=== PATIENT | female | born 1970 | race Caucasian/White ===

== ENCOUNTER 2022-12-06 09:56 | Inpatient (IN) | payer OTHER ==
[2022-12-06 10:40] VITALS: BMI 18.0
[2022-12-06] MEDS ORDERED: NALOXONE HCL 0.4 MG/ML VIAL IM PRN (11:14)
[2022-12-06] MEDS ORDERED: POLYETHYLENE GLYCOL (HEALTHYLAX) 3350 17 GM PACKET PO PRN (11:14)
[2022-12-06] MEDS ORDERED: guaiFENesin 600 MG TABLET.ER (FP) PO PRN (11:14)
[2022-12-06] MEDS ORDERED: MAGNESIUM HYDROX 2400MG/30ML ORAL SUSPENSION 30 ML CUP PO PRN (11:14)
[2022-12-06] MEDS ORDERED: ACETAMINOPHEN 325 MG TABLET (FP) PO PRN (11:14)
[2022-12-06] MEDS ORDERED: DICYCLOMINE HCL 10 MG CAPSULE PO PRN (11:14)
[2022-12-06] MEDS ORDERED: MAG HYDROX/AL HYDROX/SIMETH 30 ML UNIT-DOSE CUP PO PRN (11:14)
[2022-12-06] MEDS ORDERED: IBUPROFEN 600 MG TABLET (FP) PO PRN (11:14)
[2022-12-06] MEDS ORDERED: BISMUTH SUBSALICYLATE 262 MG/15 ML BTL PO PRN (11:14)
[2022-12-06] MEDS ORDERED: IBUPROFEN 400 MG TABLET (FP) PO PRN (11:14)
[2022-12-06] MEDS ORDERED: LOPERAMIDE HCL 2 MG CAPSULE PO PRN (11:14)
[2022-12-06] MEDS ORDERED: NALOXONE HCL (KLOXXADO) 8 MG SPRAY NS PRN (11:14)
[2022-12-06] MEDS ORDERED: BENZOCAINE/MENTHOL (CHLORASEPTIC ) LOZENGE MM PRN (11:14)
[2022-12-06] MEDS ORDERED: BENZONATATE 200 MG CAPSULE PO PRN (11:14)
[2022-12-06] MEDS ORDERED: METHOCARBAMOL 500 MG TABLET ONE (12:20)
[2022-12-06] MEDS: MELATONIN 5 MG TABLETS PO SCH (22:34)
[2022-12-06] MEDS: THIAMINE HCL 100 MG TABLET (FP) PO SCH (22:34)
[2022-12-06] MEDS: METHOCARBAMOL 500 MG TABLET PO PRN (22:34)
[2022-12-07] MEDS: METHOCARBAMOL 500 MG TABLET PO PRN (07:29)
[2022-12-07] MEDS: hydrOXYzine PAMOATE 25 MG CAPSULE (FP) PO PRN ×2 (07:29→22:18)
[2022-12-07] MEDS ORDERED: methaDONE HCL 10 MG TABLET (FOR DETOX USE ONLY) PO ONE (10:15)
[2022-12-07] MEDS: PRENATAL VITAMINS W/ FOLIC ACID TABLET (FP) PO SCH (10:36)
[2022-12-07] MEDS: cloNIDine HCL 0.1 MG TABLET PO PRN (10:39)
[2022-12-07] MEDS: ONDANSETRON *ODT* 4 MG TABLET SL PRN (10:39)
[2022-12-07 10:43] LABS: HEMATOCRIT 38.7 % (32.4-45.2); MCH 31.1 pg (25.7-33.7); MCHC 33.6 g/dl (32.0-36.0); MEAN CELL VOLUME 92.4 fl (80-96); MEAN PLT VOLUME 8.7 fl (7.5-11.1); PLATELET COUNT 206 10^3/uL (134-434); RBC 4.19 M/mm3 (3.60-5.2); RDW 13.3 % (11.6-15.6); WHITE BLOOD COUNT 4.8 K/mm3 (4.0-10.0)
[2022-12-07 11:15] LABS: POTASSIUM 5.2 mmol/L (3.5-5.1)
[2022-12-07 11:19] LABS: CALCIUM 9.3 mg/dL (8.5-10.1)
[2022-12-07 11:21] LABS: ALBUMIN 3.8 g/dl (3.4-5.0); BLOOD UREA NITROGEN 22.3 mg/dL (7-18)
[2022-12-07 11:24] LABS: CREATININE 0.7 mg/dL (0.55-1.3)
[2022-12-07 11:26] LABS: BILIRUBIN,TOTAL 0.2 mg/dL (0.2-1); TOT PROT 7.3 g/dl (6.4-8.2)
[2022-12-07] MEDS ORDERED: PNEUMOC 20-VAL CONJ-DIP CRM/PF 0.5 ML SYRINGE IM ONE (12:39)
[2022-12-07] MEDS: COLLOIDAL OATMEAL 1 BAR EACH TP PRN (12:50)
[2022-12-07] MEDS: diazePAM 5 MG TABLET PO PRN ×2 (17:13→23:45)
[2022-12-07] MEDS: MELATONIN 5 MG TABLETS PO SCH (22:17)
[2022-12-07] MEDS: THIAMINE HCL 100 MG TABLET (FP) PO SCH (22:18)
[2022-12-08] MEDS: ONDANSETRON *ODT* 4 MG TABLET SL PRN (01:25)
[2022-12-08] MEDS: cloNIDine HCL 0.1 MG TABLET PO PRN ×2 (08:38→22:02)
[2022-12-08] MEDS: PRENATAL VITAMINS W/ FOLIC ACID TABLET (FP) PO SCH (10:12)
[2022-12-08] MEDS: diazePAM 5 MG TABLET PO PRN (17:10)
[2022-12-08] MEDS: MELATONIN 5 MG TABLETS PO SCH (22:01)
[2022-12-08] MEDS: hydrOXYzine PAMOATE 25 MG CAPSULE (FP) PO PRN (22:01)
[2022-12-08] MEDS: THIAMINE HCL 100 MG TABLET (FP) PO SCH (22:01)
[2022-12-08] MEDS: METHOCARBAMOL 500 MG TABLET PO PRN (22:01)
[2022-12-08] MEDS: BACITRACIN 0.9 GM PACKET TP SCH (22:02)
[2022-12-09] MEDS: diazePAM 5 MG TABLET PO PRN ×4 (05:36→22:04)
[2022-12-09] MEDS ORDERED: methaDONE HCL 10 MG TABLET (FOR DETOX USE ONLY) PO ONE (10:00)
[2022-12-09] MEDS: BACITRACIN 0.9 GM PACKET TP SCH ×2 (10:02→22:02)
[2022-12-09] MEDS: LIDOCAINE 5% TOPICAL PATCH TP SCH (10:03)
[2022-12-09] MEDS: METHOCARBAMOL 500 MG TABLET PO PRN ×2 (10:03→22:02)
[2022-12-09] MEDS: PRENATAL VITAMINS W/ FOLIC ACID TABLET (FP) PO SCH (10:05)
[2022-12-09] MEDS: cloNIDine HCL 0.1 MG TABLET PO PRN (17:56)
[2022-12-09] MEDS: ALBUTEROL SO4 HFA INHALER IH PRN ×2 (17:58→22:08)
[2022-12-09] MEDS: MELATONIN 5 MG TABLETS PO SCH (22:02)
[2022-12-09] MEDS: LIDOCAINE PATCH REMOVAL MC SCH (22:02)
[2022-12-09] MEDS: THIAMINE HCL 100 MG TABLET (FP) PO SCH (22:02)
[2022-12-09] MEDS: hydrOXYzine PAMOATE 25 MG CAPSULE (FP) PO PRN (22:04)
[2022-12-10] MEDS: hydrOXYzine PAMOATE 25 MG CAPSULE (FP) PO PRN ×2 (05:37→10:05)
[2022-12-10] MEDS: LIDOCAINE 5% TOPICAL PATCH TP SCH (10:05)
[2022-12-10] MEDS: BACITRACIN 0.9 GM PACKET TP SCH ×2 (10:05→22:08)
[2022-12-10] MEDS: PRENATAL VITAMINS W/ FOLIC ACID TABLET (FP) PO SCH (10:07)
[2022-12-10] MEDS: NICOTINE 7 MG/24 HOURS TOPICAL PATCH TD PRN (11:05)
[2022-12-10] MEDS: amLODIPine BESYLATE 2.5 MG TABLET (FP) PO SCH (11:05)
[2022-12-10] MEDS: METHOCARBAMOL 500 MG TABLET PO PRN (14:39)
[2022-12-10] MEDS: diazePAM 5 MG TABLET PO PRN ×2 (16:41→22:07)
[2022-12-10] MEDS: ALBUTEROL SO4 HFA INHALER IH PRN (17:26)
[2022-12-10] MEDS: MELATONIN 5 MG TABLETS PO SCH (22:07)
[2022-12-10] MEDS: THIAMINE HCL 100 MG TABLET (FP) PO SCH (22:07)
[2022-12-10] MEDS: LIDOCAINE PATCH REMOVAL MC SCH (22:08)
[2022-12-11] MEDS: hydrOXYzine PAMOATE 25 MG CAPSULE (FP) PO PRN ×2 (04:52→10:02)
[2022-12-11] MEDS: METHOCARBAMOL 500 MG TABLET PO PRN (04:52)
[2022-12-11 06:25] VITALS: RESP 18
[2022-12-11] MEDS: amLODIPine BESYLATE 2.5 MG TABLET (FP) PO SCH (09:32)
[2022-12-11] MEDS: BACITRACIN 0.9 GM PACKET TP SCH (09:32)
[2022-12-11] MEDS: PRENATAL VITAMINS W/ FOLIC ACID TABLET (FP) PO SCH (09:32)
[2022-12-11] MEDS: LIDOCAINE 5% TOPICAL PATCH TP SCH (09:33)
[2022-12-11 09:45] VITALS: BP 98/58; PULSE 71; TEMP 96.9
[2022-12-11] MEDS ORDERED: methaDONE HCL 10 MG TABLET (FOR DETOX USE ONLY) PO ONE (10:00)
[2022-12-11] MEDS: COLLOIDAL OATMEAL 1 BAR EACH TP PRN (10:02)
[2022-12-11] MEDS: NICOTINE 7 MG/24 HOURS TOPICAL PATCH TD PRN (10:03)
== END 2022-12-11 11:05 | disposition home or self-care (01) | DRG 773 ==
LOC: YASAS 09:56 → Y6N 12:13
PROVIDERS: ADMIT Allergy & Immunology; ATTEND Surgery
PROC: HZ2ZZZZ Detoxification Services for Substance Abuse Treatment (ICD-10-PCS; principal; 2022-12-06)
DX: F11.23 Opioid dependence with withdrawal (principal); F12.20 Cannabis dependence, uncomplicated; F17.213 Nicotine dependence, cigarettes, with withdrawal; F39 Unspecified mood [affective] disorder; E87.5 Hyperkalemia; I10 Essential (primary) hypertension; I83.92 Asymptomatic varicose veins of left lower extremity; J45.20 Mild intermittent asthma, uncomplicated; M54.50 Low back pain, unspecified; G89.29 Other chronic pain; Z99.89 Dependence on other enabling machines and devices; Z88.8 Allergy status to other drugs, medicaments and biological substances
CPT/HCPCS: 36415; 80053; 81025; 84132; 85027; 86780; 87635; 90677; Q0162

== ENCOUNTER 2023-02-14 16:51 | Inpatient (IN) | payer OTHER ==
[2023-02-14 17:53] VITALS: BMI 19.1
[2023-02-14] MEDS ORDERED: ALBUTEROL SO4 2.5/IPRATROPIUM 0.5 INH SOL 3 ML VIAL.NEB. NEB ONE ×2 (19:28→19:48)
[2023-02-14] MEDS ORDERED: methaDONE HCL 10 MG TABLET (FOR DETOX USE ONLY) PO ONE ×2 (19:29→22:00)
[2023-02-14] MEDS ORDERED: cloNIDine HCL 0.1 MG TABLET PO PRN (19:29)
[2023-02-14] MEDS ORDERED: NALOXONE HCL (KLOXXADO) 8 MG SPRAY NS PRN (19:35)
[2023-02-14] MEDS ORDERED: IBUPROFEN 400 MG TABLET (FP) PO PRN (19:35)
[2023-02-14] MEDS ORDERED: BISMUTH SUBSALICYLATE 524 MG/30 ML PO PRN (19:35)
[2023-02-14] MEDS ORDERED: DICYCLOMINE HCL 10 MG CAPSULE PO PRN (19:35)
[2023-02-14] MEDS ORDERED: MAGNESIUM HYDROX 2400MG/30ML ORAL SUSPENSION 30 ML CUP PO PRN (19:35)
[2023-02-14] MEDS ORDERED: ACETAMINOPHEN 325 MG TABLET (FP) PO PRN (19:35)
[2023-02-14] MEDS ORDERED: POLYETHYLENE GLYCOL (HEALTHYLAX) 3350 17 GM PACKET PO PRN (19:35)
[2023-02-14] MEDS ORDERED: guaiFENesin 600 MG TABLET.ER (FP) PO PRN (19:35)
[2023-02-14] MEDS ORDERED: LOPERAMIDE HCL 2 MG CAPSULE PO PRN (19:35)
[2023-02-14] MEDS ORDERED: IBUPROFEN 600 MG TABLET (FP) PO PRN (19:35)
[2023-02-14] MEDS ORDERED: ONDANSETRON *ODT* 4 MG TABLET SL PRN (19:35)
[2023-02-14] MEDS ORDERED: BENZOCAINE/MENTHOL (CHLORASEPTIC ) LOZENGE MM PRN (19:35)
[2023-02-14] MEDS ORDERED: MAG HYDROX/AL HYDROX/SIMETH 30 ML UNIT-DOSE CUP PO PRN (19:35)
[2023-02-14] MEDS ORDERED: NALOXONE HCL 0.4 MG/ML VIAL IM PRN (19:35)
[2023-02-14] MEDS ORDERED: BENZONATATE 200 MG CAPSULE PO PRN (19:35)
[2023-02-14] MEDS: diazePAM 5 MG TABLET PO PRN (22:34)
[2023-02-14] MEDS: MELATONIN 5 MG TABLETS PO SCH (22:34)
[2023-02-14] MEDS: THIAMINE HCL 100 MG TABLET (FP) PO SCH (22:34)
[2023-02-15] MEDS ORDERED: COLLOIDAL OATMEAL 1 BAR EACH TP PRN (00:05)
[2023-02-15] MEDS: diazePAM 5 MG TABLET PO PRN (05:26)
[2023-02-15] MEDS: ALBUTEROL SO4 HFA INHALER IH PRN ×3 (05:44→15:36)
[2023-02-15] MEDS: PRENATAL VITAMINS W/ FOLIC ACID TABLET (FP) PO SCH (09:24)
[2023-02-15] MEDS: METHOCARBAMOL 500 MG TABLET PO PRN ×2 (09:24→17:40)
[2023-02-15] MEDS ORDERED: methaDONE HCL 10 MG TABLET (FOR DETOX USE ONLY) PO ONE (10:00)
[2023-02-15 10:58] LABS: HEMATOCRIT 39.4 % (32.4-45.2); HEMOGLOBIN 12.8 GM/dL (10.7-15.3); MCHC 32.6 g/dl (32.0-36.0); MEAN CELL VOLUME 95.2 fl (80-96); MEAN PLT VOLUME 8.1 fl (7.5-11.1); PLATELET COUNT 286 10^3/uL (134-434); RBC 4.14 M/mm3 (3.60-5.2); RDW 13.6 % (11.6-15.6); WHITE BLOOD COUNT 8.6 K/mm3 (4.0-10.0)
[2023-02-15 11:05] LABS: POTASSIUM 4.4 mmol/L (3.5-5.1)
[2023-02-15 11:23] LABS: BLOOD UREA NITROGEN 17.5 mg/dL (7-18); CALCIUM 8.9 mg/dL (8.5-10.1)
[2023-02-15 11:24] LABS: ALBUMIN 3.4 g/dl (3.4-5.0)
[2023-02-15 11:26] LABS: CREATININE 0.8 mg/dL (0.55-1.3)
[2023-02-15 11:28] LABS: BILIRUBIN,TOTAL 0.2 mg/dL (0.2-1)
[2023-02-15] MEDS: ALBUTEROL SO4 2.5/IPRATROPIUM 0.5 INH SOL 3 ML VIAL.NEB. NEB PRN ×2 (11:34→17:41)
[2023-02-15] MEDS: HYDROCORTISONE 1% TOPICAL CREAM 30 GM TUBE TP SCH (11:59)
[2023-02-15] MEDS: diazePAM 5 MG TABLET PO SCH ×3 (11:59→22:03)
[2023-02-15] MEDS: MELATONIN 5 MG TABLETS PO SCH (22:03)
[2023-02-15] MEDS: SUVOREXANT 10 MG TABLET PO PRN (22:03)
[2023-02-15] MEDS: THIAMINE HCL 100 MG TABLET (FP) PO SCH (22:03)
[2023-02-16] MEDS: diazePAM 5 MG TABLET PO SCH ×4 (05:39→22:10)
[2023-02-16] MEDS: ALBUTEROL SO4 HFA INHALER IH PRN ×3 (05:40→22:09)
[2023-02-16] MEDS: ALBUTEROL SO4 2.5/IPRATROPIUM 0.5 INH SOL 3 ML VIAL.NEB. NEB PRN ×2 (06:04→23:02)
[2023-02-16] MEDS ORDERED: methaDONE HCL 10 MG TABLET (FOR DETOX USE ONLY) PO ONE (10:00)
[2023-02-16] MEDS: HYDROCORTISONE 1% TOPICAL CREAM 30 GM TUBE TP SCH (10:08)
[2023-02-16] MEDS: PRENATAL VITAMINS W/ FOLIC ACID TABLET (FP) PO SCH (10:08)
[2023-02-16] MEDS: NICOTINE POLACRILEX 2 MG GUM BUC PRN (10:09)
[2023-02-16] MEDS: METHOCARBAMOL 500 MG TABLET PO PRN (10:09)
[2023-02-16] MEDS ORDERED: LIDOCAINE 4% PATCH TP ONE (11:09)
[2023-02-16] MEDS: LIDOCAINE 5% TOPICAL PATCH TP SCH (11:53)
[2023-02-16] MEDS ORDERED: LIDOCAINE PATCH REMOVAL MC SCH (22:00)
[2023-02-16] MEDS: METHYL SALICYLATE/MENTHOL OINT 30 GM TUBE TP SCH (22:09)
[2023-02-16] MEDS: MELATONIN 5 MG TABLETS PO SCH (22:09)
[2023-02-16] MEDS: LIDOCAINE PATCH REMOVAL MC SCH (22:09)
[2023-02-16] MEDS: THIAMINE HCL 100 MG TABLET (FP) PO SCH (22:09)
[2023-02-16] MEDS: SUVOREXANT 10 MG TABLET PO PRN (23:02)
[2023-02-17] MEDS: diazePAM 5 MG TABLET PO SCH ×3 (05:40→22:09)
[2023-02-17] MEDS: HYDROCORTISONE 1% TOPICAL CREAM 30 GM TUBE TP SCH (09:22)
[2023-02-17] MEDS: METHYL SALICYLATE/MENTHOL OINT 30 GM TUBE TP SCH ×2 (09:22→22:08)
[2023-02-17] MEDS: diazePAM 5 MG TABLET PO PRN ×2 (09:23→17:29)
[2023-02-17] MEDS: LIDOCAINE 5% TOPICAL PATCH TP SCH (09:23)
[2023-02-17] MEDS: PRENATAL VITAMINS W/ FOLIC ACID TABLET (FP) PO SCH (09:23)
[2023-02-17] MEDS: NICOTINE POLACRILEX 2 MG GUM BUC PRN (09:27)
[2023-02-17] MEDS ORDERED: methaDONE HCL 10 MG TABLET (FOR DETOX USE ONLY) PO ONE (10:00)
[2023-02-17] MEDS: ALBUTEROL SO4 2.5/IPRATROPIUM 0.5 INH SOL 3 ML VIAL.NEB. NEB PRN (10:30)
[2023-02-17] MEDS ORDERED: cloNIDine HCL 0.1 MG TABLET PO PRN (14:22)
[2023-02-17] MEDS: METHOCARBAMOL 500 MG TABLET PO PRN (18:32)
[2023-02-17] MEDS: ALBUTEROL SO4 HFA INHALER IH PRN (22:08)
[2023-02-17] MEDS: THIAMINE HCL 100 MG TABLET (FP) PO SCH (22:09)
[2023-02-17] MEDS: LIDOCAINE PATCH REMOVAL MC SCH (22:10)
[2023-02-17] MEDS: SUVOREXANT 10 MG TABLET PO PRN (22:11)
[2023-02-18] MEDS: diazePAM 5 MG TABLET PO SCH ×2 (05:38→17:11)
[2023-02-18] MEDS: PRENATAL VITAMINS W/ FOLIC ACID TABLET (FP) PO SCH (09:28)
[2023-02-18] MEDS: LIDOCAINE 5% TOPICAL PATCH TP SCH (09:28)
[2023-02-18] MEDS: METHYL SALICYLATE/MENTHOL OINT 30 GM TUBE TP SCH ×2 (09:28→22:07)
[2023-02-18] MEDS: HYDROCORTISONE 1% TOPICAL CREAM 30 GM TUBE TP SCH (09:28)
[2023-02-18] MEDS: METHOCARBAMOL 500 MG TABLET PO PRN (09:28)
[2023-02-18] MEDS: diazePAM 5 MG TABLET PO PRN (09:28)
[2023-02-18] MEDS: hydrOXYzine PAMOATE 25 MG CAPSULE (FP) PO PRN ×2 (17:11→22:31)
[2023-02-18] MEDS: LIDOCAINE PATCH REMOVAL MC SCH (22:08)
[2023-02-18] MEDS: THIAMINE HCL 100 MG TABLET (FP) PO SCH (22:08)
[2023-02-18] MEDS: SUVOREXANT 10 MG TABLET PO PRN (22:08)
[2023-02-19] MEDS ORDERED: diazePAM 5 MG TABLET PO ONE (06:00)
[2023-02-19 06:19] VITALS: RESP 16
[2023-02-19 09:27] VITALS: BP 114/86; PULSE 85; TEMP 97.6
[2023-02-19] MEDS: HYDROCORTISONE 1% TOPICAL CREAM 30 GM TUBE TP SCH ×2 (09:45→09:50)
[2023-02-19] MEDS: METHYL SALICYLATE/MENTHOL OINT 30 GM TUBE TP SCH ×2 (09:45→09:49)
[2023-02-19] MEDS: PRENATAL VITAMINS W/ FOLIC ACID TABLET (FP) PO SCH ×2 (09:46→09:50)
[2023-02-19] MEDS: LIDOCAINE 5% TOPICAL PATCH TP SCH (09:48)
== END 2023-02-19 11:33 | disposition home or self-care (01) | DRG 773 ==
LOC: YASAS 16:51 → Y3N 21:32
PROVIDERS: ADMIT Allergy & Immunology; ATTEND Surgery
PROC: HZ2ZZZZ Detoxification Services for Substance Abuse Treatment (ICD-10-PCS; principal; 2023-02-14)
DX: F11.23 Opioid dependence with withdrawal (principal); F13.20 Sedative, hypnotic or anxiolytic dependence, uncomplicated; F14.20 Cocaine dependence, uncomplicated; F17.210 Nicotine dependence, cigarettes, uncomplicated; F19.282 Other psychoactive substance dependence with psychoactive substance-induced sleep disorder; F19.24 Other psychoactive substance dependence with psychoactive substance-induced mood disorder; J45.30 Mild persistent asthma, uncomplicated; K21.9 Gastro-esophageal reflux disease without esophagitis; M54.50 Low back pain, unspecified; G89.29 Other chronic pain; Z91.410 Personal history of adult physical and sexual abuse; Z56.0 Unemployment, unspecified; Z59.00 Homelessness unspecified; Z88.8 Allergy status to other drugs, medicaments and biological substances
CPT/HCPCS: 36415; 80053; 81025; 85027; 86780; 87635; 94640

== ENCOUNTER 2023-03-19 16:25 | Inpatient (IN) | payer OTHER ==
[2023-03-19 17:32] VITALS: BMI 18.6
[2023-03-19] MEDS ORDERED: ACETAMINOPHEN 325 MG TABLET (FP) PO PRN (18:03)
[2023-03-19] MEDS ORDERED: IBUPROFEN 600 MG TABLET (FP) PO PRN (18:03)
[2023-03-19] MEDS ORDERED: MAGNESIUM HYDROX 2400MG/30ML ORAL SUSPENSION 30 ML CUP PO PRN (18:03)
[2023-03-19] MEDS ORDERED: MAG HYDROX/AL HYDROX/SIMETH 30 ML UNIT-DOSE CUP PO PRN (18:03)
[2023-03-19] MEDS ORDERED: DICYCLOMINE HCL 10 MG CAPSULE PO PRN (18:03)
[2023-03-19] MEDS ORDERED: BENZOCAINE/MENTHOL (CHLORASEPTIC ) LOZENGE MM PRN (18:03)
[2023-03-19] MEDS ORDERED: guaiFENesin 600 MG TABLET.ER (FP) PO PRN (18:03)
[2023-03-19] MEDS ORDERED: IBUPROFEN 400 MG TABLET (FP) PO PRN (18:03)
[2023-03-19] MEDS ORDERED: BENZONATATE 200 MG CAPSULE PO PRN (18:03)
[2023-03-19] MEDS ORDERED: ONDANSETRON *ODT* 4 MG TABLET SL PRN (18:03)
[2023-03-19] MEDS ORDERED: NALOXONE HCL 0.4 MG/ML VIAL IM PRN (18:03)
[2023-03-19] MEDS ORDERED: BISMUTH SUBSALICYLATE 524 MG/30 ML PO PRN (18:03)
[2023-03-19] MEDS ORDERED: NALOXONE HCL (KLOXXADO) 8 MG SPRAY NS PRN (18:03)
[2023-03-19] MEDS ORDERED: LOPERAMIDE HCL 2 MG CAPSULE PO PRN (18:03)
[2023-03-19] MEDS ORDERED: POLYETHYLENE GLYCOL (HEALTHYLAX) 3350 17 GM PACKET PO PRN (18:03)
[2023-03-19] MEDS ORDERED: methaDONE HCL 10 MG TABLET (FOR DETOX USE ONLY) PO ONE (19:42)
[2023-03-19] MEDS: METHOCARBAMOL 500 MG TABLET PO PRN (20:02)
[2023-03-19] MEDS ORDERED: MELATONIN 5 MG TABLETS PO SCH (22:00)
[2023-03-19] MEDS: THIAMINE HCL 100 MG TABLET (FP) PO SCH (22:35)
[2023-03-19] MEDS: PENICILLIN V POTASSIUM 500 MG TABLET PO SCH (23:28)
[2023-03-19] MEDS: ALBUTEROL SO4 HFA INHALER IH PRN (23:32)
[2023-03-20] MEDS: PRENATAL VITAMINS W/ FOLIC ACID TABLET (FP) PO SCH (09:19)
[2023-03-20] MEDS: cloNIDine HCL 0.1 MG TABLET PO PRN ×4 (09:23→22:38)
[2023-03-20] MEDS: PENICILLIN V POTASSIUM 500 MG TABLET PO SCH ×4 (09:23→22:34)
[2023-03-20] MEDS: NICOTINE POLACRILEX 2 MG GUM BUC PRN (10:29)
[2023-03-20] MEDS ORDERED: LIDOCAINE 4% PATCH TP SCH (11:45)
[2023-03-20] MEDS: METHOCARBAMOL 500 MG TABLET PO PRN (17:58)
[2023-03-20] MEDS ORDERED: LIDOCAINE PATCH REMOVAL MC SCH (22:00)
[2023-03-20] MEDS: THIAMINE HCL 100 MG TABLET (FP) PO SCH (22:34)
[2023-03-20] MEDS: LIDOCAINE PATCH REMOVAL MC SCH (22:34)
[2023-03-20] MEDS: SUVOREXANT 10 MG TABLET PO PRN (22:36)
[2023-03-21] MEDS: METHOCARBAMOL 500 MG TABLET PO PRN (05:17)
[2023-03-21] MEDS: cloNIDine HCL 0.1 MG TABLET PO PRN ×2 (05:18→11:49)
[2023-03-21] MEDS: ALBUTEROL SO4 HFA INHALER IH PRN (05:49)
[2023-03-21] MEDS ORDERED: methaDONE HCL 10 MG TABLET (FOR DETOX USE ONLY) PO ONE (10:00)
[2023-03-21] MEDS: PRENATAL VITAMINS W/ FOLIC ACID TABLET (FP) PO SCH (10:27)
[2023-03-21] MEDS: PENICILLIN V POTASSIUM 500 MG TABLET PO SCH ×4 (10:27→22:17)
[2023-03-21] MEDS: LIDOCAINE 4% PATCH TP SCH (10:28)
[2023-03-21] MEDS ORDERED: COLLOIDAL OATMEAL 1 BAR EACH TP PRN (10:30)
[2023-03-21] MEDS: diazePAM 5 MG TABLET PO PRN ×2 (17:28→22:16)
[2023-03-21] MEDS: NICOTINE POLACRILEX 2 MG GUM BUC PRN (17:34)
[2023-03-21] MEDS: SUVOREXANT 10 MG TABLET PO PRN (22:16)
[2023-03-21] MEDS: LIDOCAINE PATCH REMOVAL MC SCH (22:17)
[2023-03-21] MEDS: THIAMINE HCL 100 MG TABLET (FP) PO SCH (22:17)
[2023-03-22] MEDS: METHOCARBAMOL 500 MG TABLET PO PRN (05:42)
[2023-03-22] MEDS: NICOTINE POLACRILEX 2 MG GUM BUC PRN (05:44)
[2023-03-22] MEDS ORDERED: propRANOLol HCL 10 MG TABLET PO ONE (09:30)
[2023-03-22] MEDS: LIDOCAINE 4% PATCH TP SCH (10:05)
[2023-03-22] MEDS: PRENATAL VITAMINS W/ FOLIC ACID TABLET (FP) PO SCH (10:06)
[2023-03-22] MEDS: PENICILLIN V POTASSIUM 500 MG TABLET PO SCH ×3 (10:06→17:23)
[2023-03-22] MEDS: NICOTINE 14 MG/24 HOURS TOPICAL PATCH TD SCH (10:07)
[2023-03-22] MEDS: diazePAM 5 MG TABLET PO PRN ×3 (13:15→22:37)
[2023-03-22] MEDS: cloNIDine HCL 0.1 MG TABLET PO PRN (20:10)
[2023-03-22] MEDS: SUVOREXANT 10 MG TABLET PO PRN (22:35)
[2023-03-22] MEDS: THIAMINE HCL 100 MG TABLET (FP) PO SCH (22:35)
[2023-03-22] MEDS: LIDOCAINE PATCH REMOVAL MC SCH (22:40)
[2023-03-23] MEDS: METHOCARBAMOL 500 MG TABLET PO PRN ×3 (00:41→22:13)
[2023-03-23] MEDS: cloNIDine HCL 0.1 MG TABLET PO PRN (05:35)
[2023-03-23] MEDS: ALBUTEROL SO4 HFA INHALER IH PRN ×2 (05:35→14:50)
[2023-03-23] MEDS: NICOTINE 14 MG/24 HOURS TOPICAL PATCH TD SCH (09:06)
[2023-03-23] MEDS: PRENATAL VITAMINS W/ FOLIC ACID TABLET (FP) PO SCH (09:07)
[2023-03-23] MEDS: LIDOCAINE 4% PATCH TP SCH (09:07)
[2023-03-23] MEDS: diazePAM 5 MG TABLET PO PRN ×4 (09:08→22:14)
[2023-03-23] MEDS ORDERED: methaDONE HCL 10 MG TABLET (FOR DETOX USE ONLY) PO ONE (10:00)
[2023-03-23] MEDS: THIAMINE HCL 100 MG TABLET (FP) PO SCH (22:13)
[2023-03-23] MEDS: LIDOCAINE PATCH REMOVAL MC SCH (22:21)
[2023-03-24] MEDS: cloNIDine HCL 0.1 MG TABLET PO PRN ×2 (00:49→05:42)
[2023-03-24 09:52] VITALS: BP 111/73; PULSE 79; RESP 17; TEMP 97.8
[2023-03-24] MEDS: PRENATAL VITAMINS W/ FOLIC ACID TABLET (FP) PO SCH (09:53)
[2023-03-24] MEDS: LIDOCAINE 4% PATCH TP SCH (09:53)
[2023-03-24] MEDS: NICOTINE 14 MG/24 HOURS TOPICAL PATCH TD SCH (09:54)
== END 2023-03-24 12:17 | disposition home or self-care (01) | DRG 773 ==
LOC: YASAS 16:25 → Y6N 18:35
PROVIDERS: ADMIT Allergy & Immunology; ATTEND Surgery
PROC: HZ2ZZZZ Detoxification Services for Substance Abuse Treatment (ICD-10-PCS; principal; 2023-03-19)
DX: F11.23 Opioid dependence with withdrawal (principal); F14.20 Cocaine dependence, uncomplicated; F12.20 Cannabis dependence, uncomplicated; F17.210 Nicotine dependence, cigarettes, uncomplicated; F25.9 Schizoaffective disorder, unspecified; F19.280 Other psychoactive substance dependence with psychoactive substance-induced anxiety disorder; F19.282 Other psychoactive substance dependence with psychoactive substance-induced sleep disorder; F19.24 Other psychoactive substance dependence with psychoactive substance-induced mood disorder; F43.10 Post-traumatic stress disorder, unspecified; J45.30 Mild persistent asthma, uncomplicated; M25.512 Pain in left shoulder; M54.50 Low back pain, unspecified; G89.29 Other chronic pain; Z86.2 Personal history of diseases of the blood and blood-forming organs and certain disorders involving the immune mechanism; Z86.718 Personal history of other venous thrombosis and embolism; Z62.810 Personal history of physical and sexual abuse in childhood; Z91.410 Personal history of adult physical and sexual abuse; Z88.8 Allergy status to other drugs, medicaments and biological substances
CPT/HCPCS: 81025; 87635; Q0162

== ENCOUNTER 2023-06-17 18:40 | Inpatient (IN) | payer OTHER ==
[2023-06-17 19:18] VITALS: BMI 19.5
[2023-06-17] MEDS ORDERED: BENZONATATE 200 MG CAPSULE PO PRN (22:39)
[2023-06-17] MEDS ORDERED: MAG HYDROX/AL HYDROX/SIMETH 30 ML UNIT-DOSE CUP PO PRN (22:39)
[2023-06-17] MEDS ORDERED: IBUPROFEN 400 MG TABLET (FP) PO PRN (22:39)
[2023-06-17] MEDS ORDERED: NALOXONE HCL 0.4 MG/ML VIAL IM PRN (22:39)
[2023-06-17] MEDS ORDERED: guaiFENesin 600 MG TABLET.ER (FP) PO PRN (22:39)
[2023-06-17] MEDS ORDERED: MAGNESIUM HYDROX 2400MG/30ML ORAL SUSPENSION 30 ML CUP PO PRN (22:39)
[2023-06-17] MEDS ORDERED: POLYETHYLENE GLYCOL (HEALTHYLAX) 3350 17 GM PACKET PO PRN (22:39)
[2023-06-17] MEDS ORDERED: IBUPROFEN 600 MG TABLET (FP) PO PRN (22:39)
[2023-06-17] MEDS ORDERED: NALOXONE HCL (KLOXXADO) 8 MG SPRAY NS PRN (22:39)
[2023-06-17] MEDS ORDERED: ACETAMINOPHEN 325 MG TABLET (FP) PO PRN (22:39)
[2023-06-17] MEDS ORDERED: BENZOCAINE/MENTHOL (CHLORASEPTIC ) LOZENGE MM PRN (22:39)
[2023-06-17] MEDS ORDERED: ONDANSETRON *ODT* 4 MG TABLET SL PRN (22:39)
[2023-06-17] MEDS: BISMUTH SUBSALICYLATE 524 MG/30 ML PO PRN (23:55)
[2023-06-18] MEDS: hydrOXYzine PAMOATE 25 MG CAPSULE (FP) PO PRN (07:44)
[2023-06-18] MEDS: LOPERAMIDE HCL 2 MG CAPSULE PO PRN (07:44)
[2023-06-18] MEDS: PRENATAL VITAMINS W/ FOLIC ACID TABLET (FP) PO SCH (10:09)
[2023-06-18] MEDS ORDERED: ALBUTEROL SO4 HFA INHALER IH PRN (10:24)
[2023-06-18] MEDS: methaDONE HCL 10 MG TABLET (FOR DETOX USE ONLY) PO ONE (10:49)
[2023-06-18] MEDS: FERROUS SO4 325 MG TABLET (FP) PO SCH (10:50)
[2023-06-18 11:50] LABS: HEMATOCRIT 36.7 % (32.4-45.2); MCHC 32.7 g/dl (32.0-36.0); MEAN CELL VOLUME 91.7 fl (80-96); MEAN PLT VOLUME 8.3 fl (7.5-11.1); PLATELET COUNT 282 10^3/uL (134-434); RDW 15.1 % (11.6-15.6); WHITE BLOOD COUNT 7.6 K/mm3 (4.0-10.0)
[2023-06-18 12:54] LABS: CHLORIDE 108 mmol/L (98-107); POTASSIUM 4.4 mmol/L (3.5-5.1); SODIUM 140 mmol/L (136-145)
[2023-06-18 12:56] LABS: ALBUMIN 3.1 g/dl (3.4-5.0); CALCIUM 8.5 mg/dL (8.5-10.1)
[2023-06-18 12:58] LABS: ANION GAP 4 mmol/L (4-13); BLOOD UREA NITROGEN 15.2 mg/dL (7-18); CO2 27 mmol/L (21-32); GLUCOSE,RANDOM 109 mg/dL (74-106)
[2023-06-18 13:00] LABS: CREATININE 0.8 mg/dL (0.55-1.3); SGOT/AST 19 U/L (15-37); SGPT/ALT 22 U/L (13-61)
[2023-06-18 13:01] LABS: BILIRUBIN,TOTAL 0.2 mg/dL (0.2-1); TOT PROT 6.7 g/dl (6.4-8.2)
[2023-06-18] MEDS: ALBUTEROL SO4 HFA INHALER IH PRN (13:01)
[2023-06-18 13:02] LABS: ALK PHOS 65 U/L (45-117)
[2023-06-18 13:16] LABS: HIV INTERPRETATION NEGATIVE (NEGATIVE)
[2023-06-18] MEDS: sitaGLIPtin PHOSPHATE 50 MG TABLET PO SCH (14:30)
[2023-06-18] MEDS: guaiFENesin 600 MG TABLET.ER (FP) PO SCH (14:30)
[2023-06-18] MEDS: EMTRICITABINE/TENOFOV ALAFENAM (DESCOVY) TABLET PO SCH (14:41)
[2023-06-18] MEDS: cloNIDine HCL 0.1 MG TABLET PO PRN (17:23)
[2023-06-18] MEDS: MELATONIN 5 MG TABLETS PO SCH (21:33)
[2023-06-18] MEDS: traZODone HCL 50 MG TABLET (FP) PO SCH (21:33)
[2023-06-18] MEDS: THIAMINE HCL 100 MG TABLET (FP) PO SCH (21:33)
[2023-06-19] MEDS: ARIPiprazole 2 MG TABLET PO SCH (09:28)
[2023-06-19] MEDS: BACITRACIN 0.9 GM PACKET TP SCH (16:02)
[2023-06-19 19:32] LABS: EPI CELLS 10 /uL (0-25.1); HYALINE CASTS 1 /uL (0-3.1); URINE APPEARANCE CLEAR; URINE BACTERIA 499 /uL (0-1359); URINE BILIRUBIN NEGATIVE (NEGATIVE); URINE COLOR YELLOW; URINE GLUCOSE (UA) NEGATIVE (NEGATIVE); URINE KETONE NEGATIVE (NEGATIVE); URINE LEUK ESTERASE TRACE (NEGATIVE); URINE NITRITE NEGATIVE (NEGATIVE); URINE PROTEIN NEGATIVE (NEGATIVE); URINE RBC 33 /uL (0-23.9); URINE UROBILINOGEN 0.2 mg/dL (0.2-1.0); URINE WBC 128 /uL (0-25.8)
[2023-06-19] MEDS: AMOX TR/POT CLAV 500MG/125MG TABLETS (FP) PO SCH (21:35)
[2023-06-20] MEDS: METHOCARBAMOL 500 MG TABLET PO PRN (06:04)
[2023-06-20] MEDS: methaDONE HCL 10 MG TABLET (FOR DETOX USE ONLY) PO ONE (10:10)
[2023-06-20] MEDS: METHYL SALICYLATE/MENTHOL OINT 30 GM TUBE TP SCH (22:44)
[2023-06-21 07:50] VITALS: RESP 16
[2023-06-21 09:45] VITALS: BP 114/84; PULSE 80; TEMP 97.7
== END 2023-06-21 13:08 | disposition other institution (70) | DRG 773 ==
LOC: YASAS 18:40 → Y3N 22:56
PROVIDERS: ADMIT Allergy & Immunology; ATTEND Surgery
PROC: HZ2ZZZZ Detoxification Services for Substance Abuse Treatment (ICD-10-PCS; principal; 2023-06-17)
DX: F11.23 Opioid dependence with withdrawal (principal); F14.20 Cocaine dependence, uncomplicated; F12.20 Cannabis dependence, uncomplicated; F19.24 Other psychoactive substance dependence with psychoactive substance-induced mood disorder; F25.9 Schizoaffective disorder, unspecified; I10 Essential (primary) hypertension; F43.10 Post-traumatic stress disorder, unspecified; E11.9 Type 2 diabetes mellitus without complications; Z79.84 Long term (current) use of oral hypoglycemic drugs; Z87.891 Personal history of nicotine dependence; Z62.810 Personal history of physical and sexual abuse in childhood; Z91.410 Personal history of adult physical and sexual abuse; Z86.19 Personal history of other infectious and parasitic diseases; Z86.718 Personal history of other venous thrombosis and embolism; Z88.8 Allergy status to other drugs, medicaments and biological substances
CPT/HCPCS: 36415; 80053; 80307; 81003; 82962; 85027; 86780; 87086; 87186; 87389; 87635

== ENCOUNTER 2023-06-21 13:11 | Inpatient (IN) | payer OTHER ==
[2023-06-21] MEDS ORDERED: NICOTINE POLACRILEX 4 MG GUM BUC PRN (14:10)
[2023-06-21] MEDS ORDERED: MAG HYDROX/AL HYDROX/SIMETH 30 ML UNIT-DOSE CUP PO PRN (14:10)
[2023-06-21] MEDS ORDERED: BENZOCAINE/MENTHOL (CHLORASEPTIC ) LOZENGE MM PRN (14:10)
[2023-06-21] MEDS ORDERED: MAGNESIUM HYDROX 2400MG/30ML ORAL SUSPENSION 30 ML CUP PO PRN (14:10)
[2023-06-21] MEDS ORDERED: NALOXONE HCL (KLOXXADO) 8 MG SPRAY NS PRN (14:10)
[2023-06-21] MEDS ORDERED: NICOTINE POLACRILEX 4 MG LOZENGE BC PRN (14:10)
[2023-06-21] MEDS ORDERED: AMMONIUM LACTATE 12% LOTION 225 GM BOTTLE TP PRN (14:10)
[2023-06-21] MEDS ORDERED: POLYETHYLENE GLYCOL (HEALTHYLAX) 3350 17 GM PACKET PO PRN (14:10)
[2023-06-21] MEDS ORDERED: LOPERAMIDE HCL 2 MG CAPSULE PO PRN (14:10)
[2023-06-21] MEDS ORDERED: BENZONATATE 200 MG CAPSULE PO PRN (14:10)
[2023-06-21] MEDS ORDERED: NICOTINE 14 MG/24 HOURS TOPICAL PATCH TD PRN (14:10)
[2023-06-21] MEDS ORDERED: ACETAMINOPHEN 325 MG TABLET (FP) PO PRN (14:10)
[2023-06-21] MEDS ORDERED: IBUPROFEN 600 MG TABLET (FP) PO PRN (14:10)
[2023-06-21] MEDS ORDERED: IBUPROFEN 400 MG TABLET (FP) PO PRN (14:10)
[2023-06-21] MEDS ORDERED: guaiFENesin 600 MG TABLET.ER (FP) PO PRN (14:10)
[2023-06-21] MEDS ORDERED: NALOXONE HCL 0.4 MG/ML VIAL IVPUSH PRN (14:10)
[2023-06-21] MEDS: hydrOXYzine PAMOATE 25 MG CAPSULE (FP) PO PRN (19:14)
[2023-06-21] MEDS: ALBUTEROL SO4 HFA INHALER IH PRN (21:07)
[2023-06-21] MEDS: AMOX TR/POT CLAV 500MG/125MG TABLETS (FP) PO SCH (21:08)
[2023-06-21] MEDS: THIAMINE HCL 100 MG TABLET (FP) PO SCH (21:08)
[2023-06-21] MEDS: traZODone HCL 50 MG TABLET (FP) PO SCH (21:08)
[2023-06-21] MEDS: MELATONIN 5 MG TABLETS PO SCH (21:08)
[2023-06-22] MEDS: sitaGLIPtin PHOSPHATE 50 MG TABLET PO SCH (07:34)
[2023-06-22] MEDS: FERROUS SO4 325 MG TABLET (FP) PO SCH (10:33)
[2023-06-22] MEDS: PRENATAL VITAMINS W/ FOLIC ACID TABLET (FP) PO SCH (10:33)
[2023-06-22] MEDS: EMTRICITABINE/TENOFOV ALAFENAM (DESCOVY) TABLET PO SCH (10:35)
[2023-06-22] MEDS: ARIPiprazole 2 MG TABLET PO SCH (10:41)
[2023-06-22] MEDS: FLU VACCINE (FLULAVAL) PF 60 MCG/0.5 ML SYRINGE 2023-2024 IM ONE (12:09)
[2023-06-22] MEDS: METHOCARBAMOL 500 MG TABLET PO PRN (13:05)
[2023-06-22] MEDS: hydrOXYzine PAMOATE 25 MG CAPSULE (FP) PO PRN (13:07)
[2023-06-22 16:04] LABS: HIV INTERPRETATION NEGATIVE (NEGATIVE)
[2023-06-22] MEDS: traZODone HCL 50 MG TABLET (FP) PO SCH (21:18)
[2023-06-24] MEDS: traZODone HCL 50 MG TABLET (FP) PO SCH (21:15)
[2023-06-25 11:36] LABS: INR 0.96 (0.83-1.09); PROTHROMBIN TIME (PATIENT) 11.1 SEC (9.7-13.0)
[2023-06-25] MEDS: ALBUTEROL SO4 0.083% IH SOL 2.5 MG/3 ML VIAL.NEB. NEB PRN (11:39)
[2023-06-26 07:18] VITALS: BP 107/76; PULSE 86; RESP 16; TEMP 97.8
== END 2023-06-26 10:00 | disposition home or self-care (01) | DRG 772 ==
LOC: YASAS 13:11 → Y5N 13:12
PROVIDERS: ADMIT Allergy & Immunology; ATTEND Psychiatry & Neurology Pain Medicine
PROC: HZ42ZZZ Group Counseling for Substance Abuse Treatment, Cognitive-Behavioral (ICD-10-PCS; principal; 2023-06-21)
DX: F11.20 Opioid dependence, uncomplicated (principal); F14.20 Cocaine dependence, uncomplicated; F12.20 Cannabis dependence, uncomplicated; F31.9 Bipolar disorder, unspecified; F19.282 Other psychoactive substance dependence with psychoactive substance-induced sleep disorder; F19.24 Other psychoactive substance dependence with psychoactive substance-induced mood disorder; F25.9 Schizoaffective disorder, unspecified; F43.10 Post-traumatic stress disorder, unspecified; K21.9 Gastro-esophageal reflux disease without esophagitis; Z87.891 Personal history of nicotine dependence; Z88.8 Allergy status to other drugs, medicaments and biological substances
CPT/HCPCS: 36415; 82962; 85032; 85610; 87389; 90686; 93005; 93010; 94640; G0008

== ENCOUNTER 2023-10-29 13:32 | Inpatient (IN) | payer OTHER ==
[2023-10-29 15:44] VITALS: BMI 17.2
[2023-10-29] MEDS ORDERED: BISMUTH SUBSALICYLATE 524 MG/30 ML PO PRN (16:01)
[2023-10-29] MEDS ORDERED: BENZOCAINE/MENTHOL (CHLORASEPTIC ) LOZENGE MM PRN (16:01)
[2023-10-29] MEDS ORDERED: DICYCLOMINE HCL 10 MG CAPSULE PO PRN (16:01)
[2023-10-29] MEDS ORDERED: IBUPROFEN 600 MG TABLET (FP) PO PRN (16:01)
[2023-10-29] MEDS ORDERED: NALOXONE HCL 0.4 MG/ML VIAL IM PRN (16:01)
[2023-10-29] MEDS ORDERED: ACETAMINOPHEN 325 MG TABLET (FP) PO PRN (16:01)
[2023-10-29] MEDS ORDERED: BENZONATATE 200 MG CAPSULE PO PRN (16:01)
[2023-10-29] MEDS ORDERED: MAG HYDROX/AL HYDROX/SIMETH 30 ML UNIT-DOSE CUP PO PRN (16:01)
[2023-10-29] MEDS ORDERED: POLYETHYLENE GLYCOL (HEALTHYLAX) 3350 17 GM PACKET PO PRN (16:01)
[2023-10-29] MEDS ORDERED: ONDANSETRON *ODT* 4 MG TABLET SL PRN (16:01)
[2023-10-29] MEDS ORDERED: IBUPROFEN 400 MG TABLET (FP) PO PRN (16:01)
[2023-10-29] MEDS ORDERED: MAGNESIUM HYDROX 2400MG/30ML ORAL SUSPENSION 30 ML CUP PO PRN (16:01)
[2023-10-29] MEDS ORDERED: NALOXONE (NARCAN) HCL 4 MG/0.1 ML SPRAY NS PRN (16:01)
[2023-10-29] MEDS ORDERED: guaiFENesin 600 MG TABLET.ER (FP) PO PRN (16:01)
[2023-10-29] MEDS ORDERED: ALBUTEROL SO4 0.083% IH SOL 2.5 MG/3 ML VIAL.NEB. NEB PRN (17:49)
[2023-10-29] MEDS: methaDONE HCL 10 MG TABLET (FOR DETOX USE ONLY) PO ONE (20:06)
[2023-10-29] MEDS: THIAMINE 100 MG TABLET PO SCH (22:37)
[2023-10-29] MEDS: APIXABAN 5 MG TABLET PO SCH (22:37)
[2023-10-29] MEDS: MELATONIN 5 MG TABLETS PO SCH (22:37)
[2023-10-29] MEDS: cloNIDine HCL 0.1 MG TABLET PO PRN (22:37)
[2023-10-29] MEDS: ALBUTEROL SO4 HFA INHALER IH PRN (22:40)
[2023-10-29] MEDS: FLUTICASONE/UMECLIDIN/VILANTER(100-62.5-25 TRELEGY ELLIPTA) INAHLER IH SCH (23:06)
[2023-10-30] MEDS: METHOCARBAMOL 500 MG TABLET PO PRN (02:38)
[2023-10-30] MEDS: sitaGLIPtin PHOSPHATE 50 MG TABLET PO SCH (06:14)
[2023-10-30] MEDS: FERROUS SO4 325 MG TABLET (FP) PO SCH (09:14)
[2023-10-30] MEDS: PRENATAL VITAMINS W/ FOLIC ACID TABLET (FP) PO SCH (09:16)
[2023-10-30] MEDS: ARIPiprazole 2 MG TABLET PO SCH (11:31)
[2023-10-30 12:47] LABS: HEMATOCRIT 35.9 % (32.4-45.2); MCH 29.5 pg (25.7-33.7); MCHC 33.3 g/dl (32.0-36.0); MEAN CELL VOLUME 88.5 fl (80-96); MEAN PLT VOLUME 7.8 fl (7.5-11.1); PLATELET COUNT 297 10^3/uL (134-434); RBC 4.06 M/mm3 (3.60-5.2); RDW 15.7 % (11.6-15.6); WHITE BLOOD COUNT 6.6 K/mm3 (4.0-10.0)
[2023-10-30 13:05] LABS: POTASSIUM 4.8 mmol/L (3.5-5.1)
[2023-10-30 13:14] LABS: CALCIUM 9.5 mg/dL (8.5-10.1)
[2023-10-30 13:15] LABS: ALBUMIN 3.6 g/dl (3.4-5.0); BLOOD UREA NITROGEN 14.9 mg/dL (7-18)
[2023-10-30 13:16] LABS: BILIRUBIN,TOTAL 0.4 mg/dL (0.2-1); CREATININE 0.6 mg/dL (0.55-1.3); TOT PROT 7.3 g/dl (6.4-8.2)
[2023-10-30] MEDS: BACITRACIN 0.9 GM PACKET TP ONE (15:16)
[2023-10-30] MEDS: hydrOXYzine PAMOATE 25 MG CAPSULE (FP) PO PRN (21:00)
[2023-10-30] MEDS: traZODone HCL 50 MG TABLET (FP) PO SCH (22:12)
[2023-10-30] MEDS: BACITRACIN 0.9 GM PACKET TP SCH (22:12)
[2023-10-31] MEDS: methaDONE HCL 10 MG TABLET (FOR DETOX USE ONLY) PO ONE (09:44)
[2023-10-31] MEDS: AMOX TR/POT CLAV 500MG/125MG TABLETS (FP) PO SCH (16:50)
[2023-10-31] MEDS: EMTRICITABINE/TENOFOV ALAFENAM (DESCOVY) TABLET PO SCH (17:34)
[2023-10-31] MEDS: LIDOCAINE 5% TOPICAL PATCH TP SCH (19:11)
[2023-10-31] MEDS: LIDOCAINE PATCH REMOVAL MC SCH (22:51)
[2023-11-02] MEDS: methaDONE HCL 10 MG TABLET (FOR DETOX USE ONLY) PO ONE (09:33)
[2023-11-03] MEDS: LOPERAMIDE HCL 2 MG CAPSULE PO PRN (19:37)
[2023-11-04 09:25] VITALS: BP 113/63; PULSE 89; RESP 18; TEMP 98
== END 2023-11-04 08:50 | disposition home or self-care (01) | DRG 773 ==
LOC: YASAS 13:32 → Y6N 18:48
PROVIDERS: ADMIT Allergy & Immunology; ATTEND Surgery
PROC: HZ2ZZZZ Detoxification Services for Substance Abuse Treatment (ICD-10-PCS; principal; 2023-10-29)
DX: F11.23 Opioid dependence with withdrawal (principal); F14.20 Cocaine dependence, uncomplicated; F12.20 Cannabis dependence, uncomplicated; F25.1 Schizoaffective disorder, depressive type; F19.282 Other psychoactive substance dependence with psychoactive substance-induced sleep disorder; F19.24 Other psychoactive substance dependence with psychoactive substance-induced mood disorder; F42.4 Excoriation (skin-picking) disorder; F41.9 Anxiety disorder, unspecified; F43.10 Post-traumatic stress disorder, unspecified; Z21 Asymptomatic human immunodeficiency virus [HIV] infection status; J45.20 Mild intermittent asthma, uncomplicated; K21.9 Gastro-esophageal reflux disease without esophagitis; E11.9 Type 2 diabetes mellitus without complications; B18.2 Chronic viral hepatitis C; Z79.84 Long term (current) use of oral hypoglycemic drugs; Z86.718 Personal history of other venous thrombosis and embolism; Z79.01 Long term (current) use of anticoagulants; Z79.899 Other long term (current) drug therapy; Z88.8 Allergy status to other drugs, medicaments and biological substances; Z62.810 Personal history of physical and sexual abuse in childhood; Z91.410 Personal history of adult physical and sexual abuse; Z63.8 Other specified problems related to primary support group; Z87.01 Personal history of pneumonia (recurrent)
CPT/HCPCS: 36415; 71046-TC-FY; 80053; 80305; 80307; 82962; 85027; 86780

== ENCOUNTER 2023-11-13 12:44 | Inpatient (IN) | payer OTHER ==
[2023-11-13 13:34] VITALS: BMI 19.1
[2023-11-13] MEDS ORDERED: guaiFENesin 600 MG TABLET.ER (FP) PO PRN (13:45)
[2023-11-13] MEDS ORDERED: IBUPROFEN 400 MG TABLET (FP) PO PRN (13:45)
[2023-11-13] MEDS ORDERED: NICOTINE POLACRILEX 2 MG LOZENGE BC PRN (13:45)
[2023-11-13] MEDS ORDERED: MAGNESIUM HYDROX 2400MG/30ML ORAL SUSPENSION 30 ML CUP PO PRN (13:45)
[2023-11-13] MEDS ORDERED: POLYETHYLENE GLYCOL (HEALTHYLAX) 3350 17 GM PACKET PO PRN (13:45)
[2023-11-13] MEDS ORDERED: ACETAMINOPHEN 325 MG TABLET (FP) PO PRN (13:45)
[2023-11-13] MEDS ORDERED: BENZONATATE 200 MG CAPSULE PO PRN (13:45)
[2023-11-13] MEDS ORDERED: NICOTINE POLACRILEX 2 MG GUM BUC PRN (13:45)
[2023-11-13] MEDS ORDERED: NALOXONE (NARCAN) HCL 4 MG/0.1 ML SPRAY NS PRN (13:45)
[2023-11-13] MEDS ORDERED: NALOXONE HCL 0.4 MG/ML VIAL IVPUSH PRN (13:45)
[2023-11-13] MEDS ORDERED: MAG HYDROX/AL HYDROX/SIMETH 30 ML UNIT-DOSE CUP PO PRN (13:45)
[2023-11-13] MEDS ORDERED: IBUPROFEN 600 MG TABLET (FP) PO PRN (13:45)
[2023-11-13] MEDS ORDERED: BENZOCAINE/MENTHOL (CHLORASEPTIC ) LOZENGE MM PRN (13:45)
[2023-11-13] MEDS ORDERED: BISACODYL 5 MG TABLET.DR (FP) PO PRN (13:45)
[2023-11-13] MEDS ORDERED: DOCUSATE SODIUM 100 MG CAPSULE (FP) PO PRN (13:45)
[2023-11-13] MEDS ORDERED: LOPERAMIDE HCL 2 MG CAPSULE PO PRN (13:45)
[2023-11-13] MEDS: FERROUS SO4 325 MG TABLET (FP) PO SCH (15:14)
[2023-11-13 17:59] LABS: HIV INTERPRETATION NEGATIVE (NEGATIVE)
[2023-11-13] MEDS: ONDANSETRON *ODT* 4 MG TABLET SL PRN (18:03)
[2023-11-13] MEDS: MELATONIN 5 MG TABLETS PO SCH (21:11)
[2023-11-13] MEDS: LIDOCAINE PATCH REMOVAL MC SCH (21:11)
[2023-11-13] MEDS: APIXABAN 5 MG TABLET PO SCH (21:11)
[2023-11-13] MEDS: THIAMINE 100 MG TABLET PO SCH (21:12)
[2023-11-14] MEDS: sitaGLIPtin PHOSPHATE 50 MG TABLET PO SCH (06:04)
[2023-11-14] MEDS: hydrOXYzine PAMOATE 25 MG CAPSULE (FP) PO PRN (10:06)
[2023-11-14] MEDS: PRENATAL VITAMINS W/ FOLIC ACID TABLET (FP) PO SCH (10:06)
[2023-11-14] MEDS: EMTRICITABINE/TENOFOV ALAFENAM (DESCOVY) TABLET PO SCH (10:07)
[2023-11-14] MEDS: METHOCARBAMOL 500 MG TABLET PO PRN (10:07)
[2023-11-14] MEDS: LIDOCAINE 5% TOPICAL PATCH TP SCH (10:09)
[2023-11-14] MEDS: FLUTICASONE/UMECLIDIN/VILANTER(100-62.5-25 TRELEGY ELLIPTA) INAHLER IH SCH (10:09)
[2023-11-14] MEDS: ARIPiprazole 2 MG TABLET PO SCH (11:16)
[2023-11-14] MEDS: traZODone HCL 50 MG TABLET (FP) PO SCH (21:01)
[2023-11-15] MEDS: ALBUTEROL SO4 HFA INHALER IH PRN (19:42)
[2023-11-16 07:18] VITALS: BP 135/94; PULSE 93; RESP 18; TEMP 97.5
[2023-11-16] MEDS: clonazePAM 0.5 MG ODT TABLETS SL ONE (13:48)
[2023-11-16] MEDS: CHLORHEXIDINE GLUCONATE 0.12% 15ML CUP MM SCH (15:40)
[2023-11-16] MEDS ORDERED: AMOX TR/POT CLAV 875MG/125MG TABLETS (FP) PO SCH (17:30)
== END 2023-11-16 16:00 | disposition left against medical advice (07) | DRG 770 ==
LOC: YASAS 12:44 → Y5N 14:58
PROVIDERS: ADMIT Allergy & Immunology; ATTEND Psychiatry & Neurology Pain Medicine
PROC: HZ42ZZZ Group Counseling for Substance Abuse Treatment, Cognitive-Behavioral (ICD-10-PCS; principal; 2023-11-13)
DX: F11.20 Opioid dependence, uncomplicated (principal); F25.1 Schizoaffective disorder, depressive type; F19.280 Other psychoactive substance dependence with psychoactive substance-induced anxiety disorder; F41.1 Generalized anxiety disorder; F32.A Depression, unspecified; E11.9 Type 2 diabetes mellitus without complications; Z79.84 Long term (current) use of oral hypoglycemic drugs; K21.9 Gastro-esophageal reflux disease without esophagitis; K08.89 Other specified disorders of teeth and supporting structures; M54.50 Low back pain, unspecified; G89.29 Other chronic pain; Z87.891 Personal history of nicotine dependence; Z86.718 Personal history of other venous thrombosis and embolism; Z79.01 Long term (current) use of anticoagulants; Z86.19 Personal history of other infectious and parasitic diseases
CPT/HCPCS: 36415; 80305; 80307; 81025; 82962; 86803; 87389; 87522; 87811; Q0162

== ENCOUNTER 2024-03-20 16:33 | Inpatient (IN) | payer OTHER ==
[2024-03-20 17:31] VITALS: BMI 18.3
[2024-03-20] MEDS ORDERED: LOPERAMIDE HCL 2 MG CAPSULE PO PRN (19:40)
[2024-03-20] MEDS ORDERED: POLYETHYLENE GLYCOL (HEALTHYLAX) 3350 17 GM PACKET PO PRN (19:40)
[2024-03-20] MEDS ORDERED: MAG HYDROX/AL HYDROX/SIMETH 30 ML UNIT-DOSE CUP PO PRN (19:40)
[2024-03-20] MEDS ORDERED: ONDANSETRON *ODT* 4 MG TABLET SL PRN (19:40)
[2024-03-20] MEDS ORDERED: NALOXONE (NYS OPIOID OVERDOSE PROGRAM) 4 MG/0.1 ML SPRAY NS PRN (19:40)
[2024-03-20] MEDS ORDERED: guaiFENesin 600 MG TABLET.ER (FP) PO PRN (19:40)
[2024-03-20] MEDS ORDERED: ACETAMINOPHEN 325 MG TABLET (FP) PO PRN (19:40)
[2024-03-20] MEDS ORDERED: BISMUTH SUBSALICYLATE 524 MG/30 ML PO PRN (19:40)
[2024-03-20] MEDS ORDERED: IBUPROFEN 400 MG TABLET (FP) PO PRN (19:40)
[2024-03-20] MEDS ORDERED: BENZOCAINE/MENTHOL (CHLORASEPTIC ) LOZENGE MM PRN (19:40)
[2024-03-20] MEDS ORDERED: BENZONATATE 200 MG CAPSULE PO PRN (19:40)
[2024-03-20] MEDS ORDERED: NALOXONE (NARCAN) HCL 4 MG/0.1 ML SPRAY NS PRN (19:40)
[2024-03-20] MEDS ORDERED: DICYCLOMINE HCL 10 MG CAPSULE PO PRN (19:40)
[2024-03-20] MEDS ORDERED: P-EPHED 60MG/TRIPROLIDI 2.5MG TABLET PO PRN (19:40)
[2024-03-20] MEDS ORDERED: IBUPROFEN 600 MG TABLET (FP) PO PRN (19:40)
[2024-03-20] MEDS ORDERED: MAGNESIUM HYDROX 2400MG/30ML ORAL SUSPENSION 30 ML CUP PO PRN (19:40)
[2024-03-20] MEDS ORDERED: methaDONE HCL 10 MG TABLET (FOR DETOX USE ONLY) ONE (20:37)
[2024-03-20] MEDS: methaDONE HCL 10 MG TABLET (FOR DETOX USE ONLY) PO ONE (20:40)
[2024-03-20] MEDS: MELATONIN 5 MG TABLETS PO SCH (21:00)
[2024-03-20] MEDS: APIXABAN 5 MG TABLET PO SCH (21:00)
[2024-03-20] MEDS: THIAMINE 100 MG TABLET PO SCH (21:00)
[2024-03-20] MEDS ORDERED: MELATONIN 5 MG TABLETS ONE (22:36)
[2024-03-21] MEDS ORDERED: cloNIDine HCL 0.1 MG TABLET ONE (06:52)
[2024-03-21] MEDS: cloNIDine HCL 0.1 MG TABLET PO PRN (06:55)
[2024-03-21] MEDS: sitaGLIPtin PHOSPHATE 50 MG TABLET PO SCH (07:00)
[2024-03-21] MEDS ORDERED: PRENATAL VITAMINS W/ FOLIC ACID TABLET (FP) PO ONE (09:12)
[2024-03-21] MEDS: PRENATAL VITAMINS W/ FOLIC ACID TABLET (FP) PO SCH (09:18)
[2024-03-21] MEDS ORDERED: PATIENT'S OWN MEDICATION (NON-FORMULARY) (Ferrous Sulfate [Ferrous Sulfate] 325 MG Tablet) PO SCH (10:00)
[2024-03-21 10:47] LABS: CHLORIDE 106 mmol/L (98-107); POTASSIUM 4.5 mmol/L (3.5-5.1); SODIUM 140 mmol/L (136-145)
[2024-03-21 10:49] LABS: HEMATOCRIT 39.2 % (32.4-45.2); HEMOGLOBIN 12.8 GM/dL (10.7-15.3); MCH 30.1 pg (25.7-33.7); MCHC 32.7 g/dl (32.0-36.0); MEAN CELL VOLUME 92.1 fl (80-96); MEAN PLT VOLUME 7.5 fl (7.5-11.1); PLATELET COUNT 309 10^3/uL (134-434); RBC 4.25 M/mm3 (3.60-5.2)
[2024-03-21 10:56] LABS: ALBUMIN 3.6 g/dl (3.4-5.0); ANION GAP 4 mmol/L (4-13); CALCIUM 9.1 mg/dL (8.5-10.1); CO2 30 mmol/L (21-32); GLUCOSE,RANDOM 83 mg/dL (74-106)
[2024-03-21 10:59] LABS: SGOT/AST 22 U/L (15-37); SGPT/ALT 21 U/L (13-61)
[2024-03-21 11:00] LABS: BILIRUBIN,TOTAL 0.4 mg/dL (0.2-1); CREATININE 0.7 mg/dL (0.55-1.3)
[2024-03-21 11:02] LABS: ALK PHOS 67 U/L (45-117); TOT PROT 7.2 g/dl (6.4-8.2)
[2024-03-21] MEDS: ALBUTEROL SO4 HFA INHALER IH PRN (20:44)
[2024-03-21] MEDS: METHOCARBAMOL 500 MG TABLET PO PRN (22:40)
[2024-03-22] MEDS: hydrOXYzine PAMOATE 25 MG CAPSULE (FP) PO PRN (01:08)
[2024-03-22] MEDS: methaDONE HCL 10 MG TABLET (FOR DETOX USE ONLY) PO ONE (09:14)
[2024-03-22] MEDS: FLUTICASONE/UMECLIDIN/VILANTER(100-62.5-25 TRELEGY ELLIPTA) INAHLER IH SCH (09:16)
[2024-03-22] MEDS: LIDOCAINE 5% TOPICAL PATCH TP SCH (11:57)
[2024-03-22] MEDS: CYPROHEPTADINE HCL 4 MG TABLET PO SCH (17:26)
[2024-03-22] MEDS: METHYL SALICYLATE/MENTHOL 30 GM TUBE TP SCH (22:26)
[2024-03-22] MEDS: LIDOCAINE PATCH REMOVAL MC SCH (22:27)
[2024-03-24] MEDS: methaDONE HCL 10 MG TABLET (FOR DETOX USE ONLY) PO ONE (10:06)
[2024-03-24] MEDS: diazePAM 5 MG TABLET PO ONE ×2 (14:56→15:00)
[2024-03-24] MEDS: diazePAM 5 MG TABLET PO PRN (20:40)
[2024-03-25 09:02] VITALS: BP 129/94; PULSE 85; RESP 18; TEMP 98.7
[2024-03-25] MEDS: NALOXONE (NYS OPIOID OVERDOSE PROGRAM) 4 MG/0.1 ML SPRAY NS PRN (11:47)
== END 2024-03-25 12:40 | disposition other institution (70) | DRG 773 ==
LOC: YASAS 16:33 → Y6N 03-21 11:51
PROVIDERS: ADMIT Allergy & Immunology; ATTEND Allergy & Immunology
PROC: HZ2ZZZZ Detoxification Services for Substance Abuse Treatment (ICD-10-PCS; principal; 2024-03-21)
DX: F11.23 Opioid dependence with withdrawal (principal); F14.20 Cocaine dependence, uncomplicated; F12.20 Cannabis dependence, uncomplicated; F19.282 Other psychoactive substance dependence with psychoactive substance-induced sleep disorder; F19.24 Other psychoactive substance dependence with psychoactive substance-induced mood disorder; E11.59 Type 2 diabetes mellitus with other circulatory complications; Z79.84 Long term (current) use of oral hypoglycemic drugs; R63.4 Abnormal weight loss; Z68.1 Body mass index [BMI] 19.9 or less, adult; Z99.89 Dependence on other enabling machines and devices; Z87.891 Personal history of nicotine dependence
CPT/HCPCS: 36415; 80053; 80305; 80307; 82962; 85027; 86780; 87811

== ENCOUNTER 2024-03-25 12:58 | Inpatient (IN) | payer OTHER ==
[~2024-03-25 12:58] MED LIST: ACETAMINOPHEN 325 MG TABLET (FP) PO PRN; ALBUTEROL SO4 HFA INHALER IH PRN; BENZOCAINE/MENTHOL (CHLORASEPTIC ) LOZENGE MM PRN; BENZONATATE 200 MG CAPSULE PO PRN; IBUPROFEN 400 MG TABLET (FP) PO PRN; IBUPROFEN 600 MG TABLET (FP) PO PRN; LOPERAMIDE HCL 2 MG CAPSULE PO PRN; MAG HYDROX/AL HYDROX/SIMETH 30 ML UNIT-DOSE CUP PO PRN; MAGNESIUM HYDROX 2400MG/30ML ORAL SUSPENSION 30 ML CUP PO PRN; NALOXONE (NARCAN) HCL 4 MG/0.1 ML SPRAY NS PRN; NICOTINE POLACRILEX 2 MG GUM BUC PRN; NICOTINE POLACRILEX 2 MG LOZENGE BC PRN; POLYETHYLENE GLYCOL (HEALTHYLAX) 3350 17 GM PACKET PO PRN; guaiFENesin 600 MG TABLET.ER (FP) PO PRN
[2024-03-25] MEDS: hydrOXYzine PAMOATE 25 MG CAPSULE (FP) PO PRN (14:46)
[2024-03-25] MEDS: TUBERCULIN PPD 5 TU/0.1ML VIAL ID ONE (14:46)
[2024-03-25] MEDS: CYPROHEPTADINE HCL 4 MG TABLET PO SCH (16:35)
[2024-03-25] MEDS: MELATONIN 5 MG TABLETS PO SCH (21:22)
[2024-03-25] MEDS: THIAMINE 100 MG TABLET PO SCH (21:22)
[2024-03-25] MEDS: APIXABAN 5 MG TABLET PO SCH (21:22)
[2024-03-26] MEDS ORDERED: ACETAMINOPHEN 325 MG TABLET (FP) PO PRN (01:15)
[2024-03-26] MEDS: METHOCARBAMOL 500 MG TABLET PO PRN (01:23)
[2024-03-26] MEDS: METHYL SALICYLATE/MENTHOL 30 GM TUBE TP PRN (06:41)
[2024-03-26] MEDS: sitaGLIPtin PHOSPHATE 50 MG TABLET PO SCH (07:15)
[2024-03-26 07:17] VITALS: BP 132/87; PULSE 81; RESP 16; TEMP 97.2
[2024-03-26] MEDS: PRENATAL VITAMINS W/ FOLIC ACID TABLET (FP) PO SCH (10:21)
[2024-03-26] MEDS: FLUTICASONE/UMECLIDIN/VILANTER(100-62.5-25 TRELEGY ELLIPTA) INAHLER IH SCH (10:24)
[2024-03-26] MEDS ORDERED: diazePAM 5 MG TABLET PO PRN (13:06)
[2024-03-26] MEDS ORDERED: BUPRENORPHINE HCL 150 MCG, BUPRENORPHINE HCL 75 MCG BC PRN (13:06)
[2024-03-26] MEDS: LIDOCAINE 5% TOPICAL PATCH TP SCH (14:35)
[2024-03-26] MEDS: BUPRENORPHINE HCL 150 MCG, BUPRENORPHINE HCL 75 MCG BC ONE (14:35)
[2024-03-26] MEDS: cloNIDine HCL 0.1 MG TABLET PO ONE (14:35)
[2024-03-26] MEDS: BACLOFEN 10 MG TABLET (FP) PO SCH (14:35)
[2024-03-26] MEDS ORDERED: cloNIDine HCL 0.1 MG TABLET PO PRN (17:06)
[2024-03-26] MEDS ORDERED: LIDOCAINE PATCH REMOVAL MC SCH (22:00)
[2024-03-27] MEDS ORDERED: BUPRENORPHINE HCL 150 MCG, BUPRENORPHINE HCL 75 MCG BC PRN
[2024-03-27] MEDS ORDERED: BUPRENORPHINE HCL 150 MCG, BUPRENORPHINE HCL 75 MCG BC SCH (06:00)
[2024-03-28] MEDS ORDERED: BUPRENORPHINE HCL 450 MCG FILM BC SCH (06:00)
[2024-03-29] MEDS ORDERED: BUPRENORPHINE/NALOXONE 4 MG/1 MG FILM PACKET SL SCH ×2 (06:00)
[2024-03-30] MEDS ORDERED: BUPRENORPHINE/NALOXONE 4 MG/1 MG FILM PACKET SL SCH (06:00)
== END 2024-03-26 15:15 | disposition left against medical advice (07) | DRG 770 ==
LOC: YASAS 12:58 → Y5N 13:00
PROVIDERS: ADMIT Allergy & Immunology; ATTEND Psychiatry & Neurology Pain Medicine
PROC: HZ42ZZZ Group Counseling for Substance Abuse Treatment, Cognitive-Behavioral (ICD-10-PCS; principal; 2024-03-25)
DX: F11.20 Opioid dependence, uncomplicated (principal); F10.20 Alcohol dependence, uncomplicated; F14.20 Cocaine dependence, uncomplicated; F19.282 Other psychoactive substance dependence with psychoactive substance-induced sleep disorder; F25.9 Schizoaffective disorder, unspecified; F19.24 Other psychoactive substance dependence with psychoactive substance-induced mood disorder; F43.10 Post-traumatic stress disorder, unspecified; J45.20 Mild intermittent asthma, uncomplicated; K21.9 Gastro-esophageal reflux disease without esophagitis; Z79.84 Long term (current) use of oral hypoglycemic drugs; E11.59 Type 2 diabetes mellitus with other circulatory complications; I83.93 Asymptomatic varicose veins of bilateral lower extremities; M54.50 Low back pain, unspecified; G89.29 Other chronic pain; Z86.718 Personal history of other venous thrombosis and embolism; Z79.01 Long term (current) use of anticoagulants; Z86.19 Personal history of other infectious and parasitic diseases; Z99.89 Dependence on other enabling machines and devices; Z87.891 Personal history of nicotine dependence
CPT/HCPCS: 82962